=== PATIENT | male | born 1965 | race African-American/Black ===

== ENCOUNTER 2017-04-25 21:41 | Emergency (ER) | payer MEDICAID ==
[2017-04-25 22:03] VITALS: BP 121/74
--- NOTE | 2017-04-25 22:20 | EDM.PDOC ---
ED HPI GENERAL MEDICAL PROBLEM - General Chief Complaint: Back Pain or Injury Stated Complaint: BACK IN SEVERE PAIN, [id number] Time Seen by Provider: 04/25/17 22:15 Source of Information: Reports: Patient History Limitations: Reports: No Limitations - History of Present Illness INITIAL COMMENTS - FREE TEXT/NARRATIVE: ED with c/o of sever low back pain with radiation down left leg to knee. Onset after moving washer today. No significant back pain hx. Admits to a few drinks earlier today.No numbness or weakness. No difficulty with voiding, or incontinence . Onset: Today Duration: Hour(s): Location: Reports: Back Left Back Pain Score (Numeric/FACES): 10 - Related Data Allergies Allergy/AdvReac Type Severity Reaction Status Date / Time No Known Allergies Allergy Verified 04/25/17 21:48 Home Meds: Home Meds Albuterol [IJD: Ventolin HFA] 1 puff INH DAILY 04/25/17 [History] Aspirin 4 tab PO ASDIRECTED 04/25/17 [History] Past Medical History - Past Health History Medical/Surgical History: Denies Medical/Surgical History Respiratory History: Reports: Other (See Below) Other Respiratory History: environmental allergies - Infectious Disease History Infectious Disease History: Reports: Chicken Pox Social & Family History - Family History Family Medical History: Noncontributory - Tobacco Use Smoking Status *Q: Never Smoker Second Hand Smoke Exposure: No - Caffeine Use Caffeine Use: Reports: Coffee, Energy Drinks - Alcohol Use Days Per Week of Alcohol Use: 0 - Recreational Drug Use Recreational Drug Use: No ED ROS GENERAL - Review of Systems Review Of Systems: ROS reveals no pertinent complaints other than HPI. ED EXAM,LOWER BACK PAIN/INJURY - Physical Exam Exam: See Below Exam Limited By: No Limitations General Appearance: Alert, Moderate Distress Eye Exam: Bilateral Eye: EOMI Ears: Hearing Grossly Normal Nose: Normal Inspection Throat/Mouth: Normal Voice Head: Atraumatic, Normocephalic Neck: Normal Inspection, Full Range of Motion Respiratory/Chest: No Respiratory Distress, Lungs Clear, Normal Breath Sounds Cardiovascular: Normal Peripheral Pulses, Regular Rate, Rhythm GI/Abdominal: Normal Bowel Sounds, Soft Back Exam: Decreased Range of Motion, Muscle Spasm (left), Paraspinal Tenderness (left), Other (left sciatic pain with palpation). No: Vertebral Tenderness Neurological: Alert, Normal Dorsiflexion, Normal Plantar Flexion (increased pain left), Normal Reflexes, Oriented x 3, Straight Leg Raise (L) (increased papin), Other (slight odor ETOH). No: Normal Gait (antalgic), Abnormal Sensation, Saddle Anesthesia Course - Vital Signs Last Recorded V/S: Last Vital Signs Temp 98.2 F 04/25/17 21:54 Pulse 99 04/25/17 21:54 Resp 18 04/25/17 21:54 BP 121/74 04/25/17 21:54 Pulse Ox 98 04/25/17 21:54 - Orders/Labs/Meds Meds: Medications Discontinued Medications Generic Name Dose Route Start Last Admin Trade Name Hoang PRN Reason Stop Dose Admin Ketorolac Tromethamine 30 mg 04/25/17 22:25 04/25/17 23:03 Toradol IVPUSH 04/25/17 22:26 Not Given ONETIME ONE Methylprednisolone Sodium Succinate 125 mg 04/25/17 22:27 04/25/17 23:03 Solu-Medrol IVPUSH 04/25/17 22:28 Not Given ONETIME ONE Orphenadrine Citrate 60 mg 04/25/17 22:27 04/25/17 23:02 Norflex IM 04/25/17 22:28 Not Given ONETIME ONE - Re-Assessments/Exams Free Text/Narrative Re-Assessment/Exam: Patient reportedly asked to use restroom while nurse obtaining medications and was seen leaving building. Departure - Departure Time of Disposition: 23:15 Disposition: Eloped 07 Condition: Undetermined Clinical Impression: Back pain Qualifiers: Back pain location: low back pain Chronicity: acute Back pain laterality: left Sciatica presence: with sciatica Sciatica laterality: sciatica of left side Qualified Code(s): M54.42 - Lumbago with sciatica, left side - Discharge Information Referrals: PCP,Unobtain [Primary Care Provider] - Forms: ED Department Discharge
[2017-04-25] MEDS ORDERED: Ketorolac 30 MG/ML SDV IVPUSH ONE (22:25)
[2017-04-25] MEDS ORDERED: methylPREDNISolone Sodium Succinate 125 MG/2 ML SDV IVPUSH ONE (22:27)
== END 2017-04-25 22:40 | disposition left against medical advice (07) ==
LOC: DL.ED 21:41
DX: M54.42 Lumbago with sciatica, left side (principal); Z79.899 Other long term (current) drug therapy
CPT/HCPCS: 99283

== ENCOUNTER 2022-02-18 09:29 | Emergency (ER) | payer BC, MEDICAID | END 2022-02-18 11:33 | disposition left against medical advice (07) | LOC: DL.ED 09:29 | DX: Z53.21 Procedure and treatment not carried out due to patient leaving prior to being seen by health care provider (principal) ==

== ENCOUNTER 2022-02-19 12:08 | Emergency (ER) | payer BC, MEDICAID ==
[2022-02-19 12:21] VITALS: BP 144/102; PULSE 99
[2022-02-19 13:13] LABS: ANION GAP 18.6 mEq/L (7-13); CHLORIDE,CL 104 mmol/L (98-107); SODIUM,NA 140 mmol/L (136-145)
[2022-02-19 13:16] LABS: CORONAVIRUS COVID-19 NAA NEGATIVE (NEGATIVE); RESPIRATORY SYNCYTIAL VIR NAA NEGATIVE (NEGATIVE)
[2022-02-19] MEDS ORDERED: methylPREDNISolone Sodium Succinate 125 MG/2 ML SDV IM ONE (13:29)
[2022-02-19] MEDS ORDERED: Azithromycin 250 MG Tab PO ONE (13:31)
== END 2022-02-19 13:48 | disposition home or self-care (01) ==
LOC: DL.ED 12:08
DX: R06.02 Shortness of breath (principal); R06.01 Orthopnea; Z20.822 Contact with and (suspected) exposure to COVID-19; Z87.891 Personal history of nicotine dependence; Z79.899 Other long term (current) drug therapy; Z79.82 Long term (current) use of aspirin
CPT/HCPCS: 0241U; 36415; 71045; 80053; 83880; 85025; 93005; 96372; 99284; 99285-25; A9270-GY; J2930